=== PATIENT | male | born 1995 | race Two or more races ===

== ENCOUNTER 2020-08-13 00:27 | Emergency (ER) | payer SELFPAY ==
[~2020-08-13] VITALS: Ht 175.3 cm; Wt 77.1 kg
[2020-08-13 04:00] VITALS: BP 124/81
== END 2020-08-13 05:30 | disposition home or self-care (01) ==
LOC: EDBD 00:27 → ER 00:27
DX: T40.601A Poisoning by unspecified narcotics, accidental (unintentional), initial encounter (principal); X58.XXXA Exposure to other specified factors, initial encounter; Y93.89 Activity, other specified; Y92.89 Other specified places as the place of occurrence of the external cause; Y99.8 Other external cause status

== ENCOUNTER 2021-10-25 04:55 | Emergency (ER) | payer MEDICAID ==
[~2021-10-25] VITALS: Ht 175.3 cm; Wt 72.6 kg
[2021-10-25 05:52] LABS: BUN/Creatinine Ratio 12.8; Calcium 8.9 mg/dL (8.5-10.1); Magnesium 2.4 mg/dL (1.6-2.6); Potassium 3.9 mmol/L (3.5-5.1)
[2021-10-25 05:55] LABS: Bilirubin, Total 0.6 mg/dL (0.2-1.0); Total Protein 7.1 g/dL (6.4-8.2)
[2021-10-25 06:00] LABS: Basophils # (auto) 0.1 10 ^3/uL (0-0.2); Basophils % (auto) 0.8 % (0.0-2.0); Eosinophils # (auto) 0.1 10 ^3/uL (0-0.8); Eosinophils % (auto) 1.6 % (0.0-7.0); Hematocrit 48.2 % (41.0-53.0); Hemoglobin 16.8 g/dL (13.5-17.5); Lymphocytes # (auto) 2.7 10 ^3/uL (0.4-5.4); Lymphocytes % (auto) 37.2 % (10.0-50.0); Mean Corpuscular Hemoglobin 32.4 pg (28.0-32.0); Mean Corpuscular Hgb Conc. 34.9 g/dL (32.0-36.0); Mean Corpuscular Volume 92.8 fL (80.0-100.0); Monocytes # (auto) 0.7 10 ^3/uL (0-1.3); Monocytes % (auto) 9.7 % (0.0-12.0); Neutrophils # (auto) 3.8 10 ^3/uL (1.6-8.6); Neutrophils % (auto) 50.7 % (37.0-80.0); Red Cell Distribution Width 13.9 % (11.8-14.3); White Blood Cell 7.4 10^3/uL (4.4-10.8)
[2021-10-25] MEDS ORDERED: ASPirin 81 mg TAB PO ONE (07:45)
[2021-10-25 09:35] VITALS: BP 129/71
== END 2021-10-25 09:34 | disposition home or self-care (01) ==
LOC: ER 04:55
DX: R07.89 Other chest pain (principal); F41.9 Anxiety disorder, unspecified; F17.210 Nicotine dependence, cigarettes, uncomplicated
CPT/HCPCS: 36415; 71045; 80053; 83735; 83880; 84443; 84484; 85025; 93005

== ENCOUNTER 2023-07-31 23:40 | Emergency (ER) | payer MEDICAID ==
[~2023-07-31] VITALS: Ht 175.3 cm; Wt 63.6 kg
[2023-07-31 23:50] VITALS: BP 110/81; PULSE 81; RESP 20; O2SAT 99
== END 2023-07-31 23:53 | disposition left against medical advice (07) ==
LOC: ER 23:40
DX: F41.9 Anxiety disorder, unspecified (principal); Z53.21 Procedure and treatment not carried out due to patient leaving prior to being seen by health care provider